=== PATIENT | female | born 1965 | race Caucasian/White ===

== ENCOUNTER 2022-02-17 23:26 | Emergency (ER) | payer OTHER ==
[2022-02-17 23:53] VITALS: BP 129/78; PULSE 92; TEMP 97.8; BMI 26.4
[2022-02-18] MEDS ORDERED: ALBUTEROL SO4 2.5/IPRATROPIUM 0.5 INH SOL 3 ML VIAL.NEB. NEB ONE ×2 (01:08→01:23)
[2022-02-18] MEDS ORDERED: FLUTICASONE PROP 0.05% 16 GM NASAL SPRAY NS ONE (01:09)
[2022-02-18] MEDS ORDERED: ALBUTEROL SO4 HFA INHALER IH ONE ×2 (03:09)
== END 2022-02-18 03:36 | disposition home or self-care (01) ==
LOC: JER 23:26
PROC: 3E0F7GC Introduction of Other Therapeutic Substance into Respiratory Tract, Via Natural or Artificial Opening (ICD-10-PCS; principal; 2022-02-17)
DX: J45.909 Unspecified asthma, uncomplicated (principal)
CPT/HCPCS: 71046-TC-FY; 93005; 93010; 99285-25